=== PATIENT | male | born 1965 | race Caucasian/White ===

== ENCOUNTER 2017-03-28 12:46 | Inpatient (IN) | payer OTHER ==
[~2017-03-28] VITALS: Ht 175.3 cm; Wt 72.0 kg
[~2017-03-28 12:46] MED LIST: AMOXICILLIN500 MG PO; EPCLUSA 400 MG1 EACH PO; HYDROMORPHONE HC4 MG PO; MIRTAZAPINE15 MG PO; NAPROSYN500 MG PO; NORCO 5/3251 TABLET PO; OPANA ER40 MG PO; OXYCODONE HCL30 MG PO; PERIDEX1 ML MM; TRAMADOL HCL50 MG PO; ULTRACET1 TABLET PO; ZOFRAN4 MG PO
[2017-03-28 15:19] LABS: ADD MIUA? YES; BILIRUBIN NEGATIVE; BLOOD NEGATIVE; COLOR YELLOW ((YELLOW)); GLUCOSE (STRIP) NEGATIVE; KETONES NEGATIVE; LEUKOCYTES NEGATIVE; NITRITE NEGATIVE; PROTEIN (STRIP) NEGATIVE; UROBILINOGEN 0.2 MG/DL (0.2-1.0)
[2017-03-28 15:29] LABS: COCAINE PRESUMPTIVE POSITIVE (150 ng/mL); PHENCYCLIDINE NEGATIVE (25 ng/mL); THC CANNABINOIDS NEGATIVE (50 ng/mL)
[2017-03-28 15:30] LABS: ADD MEDTOX COMMENT Y; AMPHETAMINE NEGATIVE (500 ng/mL); BARBITURATES NEGATIVE (200 ng/mL); BENZODIAZEPINES PRESUMPTIVE POSITIVE (150 ng/mL); INTERNAL CONTROLS VALID? YES; METHADONE NEGATIVE (200 ng/mL); METHAMPHETAMINE NEGATIVE (500 ng/mL); OPIATES (MORPHINE) NEGATIVE (100 ng/mL); OXYCODONE NEGATIVE (100 ng/mL); PROPOXYPHENE NEGATIVE (300 ng/mL); TRICYCLIC ANTIDEPRESSANTS NEGATIVE (300 ng/mL)
[2017-03-28 15:32] LABS: HEMATOCRIT 38.8 % (38.0-50.0); MCH 30.9 PG (29.0-34.0); MCHC 33.8 G/DL (30.0-36.0); MCV 91.5 FL (86-99); MEAN PLAT.VOLUME 9.8 uM^3 (9.0-12.4); PLATELET COUNT 222 K/uL (156-360); RBC DIS.WIDTH-SD 43.1 % (39-53); RED BLOOD COUNT 4.24 M/uL (4.00-5.50); WHITE BLOOD COUNT 6.5 K/uL (4.1-10.2)
[2017-03-28 15:36] LABS: BACTERIA NONE SEEN /HPF; CALCIUM OXALATE CRYSTALS 1+ /HPF; EPITHELIAL CELLS NONE SEEN /HPF; MUCUS TRACE /LPF; RED BLOOD CELLS 0-5 /HPF (0-5); UCUL ADDED? NO; WHITE BLOOD CELLS 0-5 /HPF (0-5)
[2017-03-28 15:40] LABS: CHLORIDE 109 mEq/L (99-109); SODIUM 142 mEq/L (136-147)
[2017-03-28 15:42] LABS: GLUCOSE 104 mg/dL (70-99)
[2017-03-28 15:43] LABS: ANION GAP 5 MEQ/L (2-14)
[2017-03-28 15:44] LABS: TOTAL BILIRUBIN 0.1 mg/dL (0.0-1.0)
[2017-03-28 15:45] LABS: SERUM ETHYL ALCOHOL < 10 mg/dL
[2017-03-28 15:46] LABS: ALKALINE PHOSPHATASE 58 IU/L (3-129); GFR ESTIMATE (CALCULATED) > 59 mL/min/
[2017-03-28 15:47] LABS: UREA NITROGEN (BUN) 13 mg/dL (9-23)
[2017-03-28 15:59] LABS: BENZODIAZEPINES, URINE SCREEN POSITIVE (200 ng/mL)
[2017-03-28] MEDS ORDERED: ASPIRIN325 MG PO (16:42)
[2017-03-28 18:56] VITALS: BP 131/80
[2017-03-28 18:58] VITALS: BP 131/84
[2017-03-29 07:46] VITALS: BP 134/69
[2017-03-29 15:39] VITALS: BP 137/74
[2017-03-30 07:47] VITALS: BP 126/83
[2017-03-30 15:21] VITALS: BP 130/82
[2017-03-31 08:15] VITALS: BP 100/58
[2017-03-31 15:44] VITALS: BP 123/67
[2017-04-01 07:23] VITALS: BP 105/60
[2017-04-01 15:16] VITALS: BP 126/81
[2017-04-02 07:44] VITALS: BP 119/67
[2017-04-02] MEDS ORDERED: OLANZAPINE5 MG PO (09:22)
[2017-04-02] MEDS ORDERED: FLUOXETINE HCL10 MG PO (09:22)
== END 2017-04-02 11:39 | disposition home or self-care (01) | DRG 885 ==
LOC: EME 12:46 → 1WEST 16:17 → EME 18:07 → ENRESERV 18:07 → 1WEST 04-02 11:39
PROVIDERS: Emergency Medicine
DX: F31.81 Bipolar II disorder (principal); R45.851 Suicidal ideations; F10.10 Alcohol abuse, uncomplicated; F11.10 Opioid abuse, uncomplicated; F14.10 Cocaine abuse, uncomplicated; F17.210 Nicotine dependence, cigarettes, uncomplicated; G47.00 Insomnia, unspecified; G89.21 Chronic pain due to trauma; M54.5 Low back pain; S32.10XS Unspecified fracture of sacrum, sequela; S32.059S Unspecified fracture of fifth lumbar vertebra, sequela; S32.049S Unspecified fracture of fourth lumbar vertebra, sequela; G62.9 Polyneuropathy, unspecified; I25.10 Atherosclerotic heart disease of native coronary artery without angina pectoris; R63.4 Abnormal weight loss; Z59.0 Homelessness; Z86.010 Personal history of colon polyps; Z88.6 Allergy status to analgesic agent; Z68.24 Body mass index [BMI] 24.0-24.9, adult
CPT/HCPCS: 71020; 80053; 81003; 84999; 85027; 90839; 97150 GO; 97165 GO; 99281; 99284; G0480; Q0177

== ENCOUNTER 2017-05-12 16:50 | Emergency (ER) | payer OTHER ==
[~2017-05-12] VITALS: Ht 175.3 cm; Wt 82.1 kg
[~2017-05-12 16:50] MED LIST changes: +ASPIRIN325 MG PO; +FLUOXETINE HCL10 MG PO; +OLANZAPINE5 MG PO
[2017-05-12] MEDS ORDERED: ZYPREXA10 MG PO (18:05)
[2017-05-12] MEDS ORDERED: PROZAC10 MG PO (18:05)
[2017-05-12] MEDS ORDERED: ATARAX,VISTARIL25 MG PO (18:05)
[2017-05-12 18:31] VITALS: BP 150/85
== END 2017-05-12 18:31 | disposition home or self-care (01) ==
LOC: EME 16:50
DX: Z76.0 Encounter for issue of repeat prescription (principal); F31.9 Bipolar disorder, unspecified; F17.200 Nicotine dependence, unspecified, uncomplicated
CPT/HCPCS: 99281; 99283

== ENCOUNTER 2017-06-06 14:59 | Emergency (ER) | payer OTHER ==
[~2017-06-06] VITALS: Ht 175.3 cm; Wt 85.6 kg
[~2017-06-06 14:59] MED LIST changes: +ATARAX,VISTARIL25 MG PO; +PROZAC10 MG PO; +ZYPREXA10 MG PO
[2017-06-06 17:39] LABS: HEMATOCRIT 39.6 % (38.0-50.0); MCH 31.6 PG (29.0-34.0); MCHC 34.3 G/DL (30.0-36.0); MCV 91.9 FL (86-99); MEAN PLAT.VOLUME 10.1 uM^3 (9.0-12.4); PLATELET COUNT 183 K/uL (156-360); RBC DIS.WIDTH-CV 12.9 % (11.8-14.6); RBC DIS.WIDTH-SD 44.2 % (39-53); RED BLOOD COUNT 4.31 M/uL (4.00-5.50); WHITE BLOOD COUNT 5.3 K/uL (4.1-10.2)
[2017-06-06 17:48] LABS: CHLORIDE 104 mEq/L (99-109); SODIUM 137 mEq/L (136-147)
[2017-06-06 17:49] LABS: ADD MIUA? NO; BILIRUBIN NEGATIVE; BLOOD NEGATIVE; COLOR YELLOW ((YELLOW)); GLUCOSE (STRIP) NEGATIVE; KETONES NEGATIVE; LEUKOCYTES NEGATIVE; NITRITE NEGATIVE; PROTEIN (STRIP) NEGATIVE; SPECIFIC GRAVITY 1.009 (1.000-1.030); UCUL ADDED? NO; UROBILINOGEN 0.2 MG/DL (0.2-1.0)
[2017-06-06 17:50] LABS: GLUCOSE 146 mg/dL (70-99)
[2017-06-06 17:51] LABS: ANION GAP 8 MEQ/L (2-14)
[2017-06-06 17:53] LABS: GFR ESTIMATE (CALCULATED) > 59 mL/min/
[2017-06-06 17:54] LABS: UREA NITROGEN (BUN) 17 mg/dL (9-23)
[2017-06-06 18:16] LABS: AMPHETAMINE NEGATIVE (500 ng/mL); BENZODIAZEPINES NEGATIVE (150 ng/mL); COCAINE PRESUMPTIVE POSITIVE (150 ng/mL); METHAMPHETAMINE NEGATIVE (500 ng/mL); OPIATES (MORPHINE) NEGATIVE (100 ng/mL); PHENCYCLIDINE NEGATIVE (25 ng/mL); THC CANNABINOIDS NEGATIVE (50 ng/mL)
[2017-06-06 18:17] LABS: ADD MEDTOX COMMENT Y; BARBITURATES NEGATIVE (200 ng/mL); INTERNAL CONTROLS VALID? YES; METHADONE NEGATIVE (200 ng/mL); OXYCODONE NEGATIVE (100 ng/mL); PROPOXYPHENE NEGATIVE (300 ng/mL); TRICYCLIC ANTIDEPRESSANTS NEGATIVE (300 ng/mL)
[2017-06-06 22:15] VITALS: BP 130/82
== END 2017-06-06 22:17 ==
LOC: EME 14:59
PROVIDERS: Emergency Medicine
DX: F33.1 Major depressive disorder, recurrent, moderate (principal); R45.851 Suicidal ideations; G89.29 Other chronic pain; F60.9 Personality disorder, unspecified; F11.21 Opioid dependence, in remission; F14.20 Cocaine dependence, uncomplicated; F31.9 Bipolar disorder, unspecified; F17.200 Nicotine dependence, unspecified, uncomplicated; Z86.73 Personal history of transient ischemic attack (TIA), and cerebral infarction without residual deficits; Z79.82 Long term (current) use of aspirin; Z88.5 Allergy status to narcotic agent; Z88.8 Allergy status to other drugs, medicaments and biological substances
CPT/HCPCS: 80048; 81003; 84999; 85027; 90837; 99281; 99285